=== PATIENT | female | born 1980 | race Caucasian/White ===

== ENCOUNTER → 2021-08-03 09:07 | Outpatient (CLI) | payer BC, SELFPAY ==
--- NOTE | ~2021-08-03 | US_ITS ---
EXAMINATION: US thyroid EXAM DATE: 08/03/2021 09:35 INDICATION: Sick euthyroid syndrome . Hair loss. TECHNIQUE: Multiple grayscale and Doppler images of the thyroid were obtained (by a technologist who performed the scan) and subsequently reviewed. Individual nodules and recommendations may be reporte d in accordance with TI-RADS system as designated by the 2017 ACR White Paper TI-RADS committee. The re is no prior study for comparison. FINDINGS: The right thyroid lobe measures 4.8 x 1.6 x 1.8 cm, the left measuring 4.0 x 1.2 x 1.3 cm. Dimensions are within normal size limits. There is relatively homogeneous thyroid echogenicity, with severely h ypervascular parenchyma. There are several subcentimeter thyroid nodules. In the right thyroid lobe there is a category TR 4 nodule measuring 9 x 6 x 9 mm. Follow-up for this category nodule recommended only if nodule is 1 cm in size. 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 Return to clinical follow-up and if additional palpable abnormality develops a repeat ultrasound can be obtained. Reviewed, dictated and finalized at location [facility]. 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 Return to clinical follow-up and if additional palpable abnormality develop s a repeat ultrasound can be obtained.
== END ==
PROVIDERS: PCP Physician Assistant; Visit Provider Physician Assistant
DX: E07.81 Sick-euthyroid syndrome (principal)
CPT/HCPCS: 76536

== ENCOUNTER 2024-11-05 07:05 | Outpatient (CLI) | payer BC, SELFPAY ==
--- NOTE | ~2024-11-05 | XR_ITS ---
Lumbosacral Spine: AP, oblique, and lateral views Clinical History: Pain Findings: The normal lordotic curve is maintained. The vertebral bodies and posterior elements are i ntact. The intervertebral disc spaces are preserved. Mild facet arthropathy present at the lower lum bar spine. The sacroiliac joints are normally outlined. Impression: Mild facet arthropathy in the lower lumbar spine. Reviewed, dictated and finalized at location . Impression: Mild facet arthropathy in the lower lumbar spine.
--- NOTE | ~2024-11-05 | XR_ITS ---
Thoracic spine: Clinical Indication: Back pain AP and lateral views were performed. No fracture is seen. There is normal alignment of the vertebrae. The intervertebral disc spaces appe ar normal. Paravertebral soft tissues appear normal. Impression: No significant abnormalities noted. Reviewed, dictated and finalized at [facility]. Impression: No significant abnormalities noted.
== END 2024-11-05 07:06 | disposition home or self-care (01) ==
LOC: MICIMG 07:07
PROVIDERS: PCP Chiropractor; Visit Provider Chiropractor
DX: M47.816 Spondylosis without myelopathy or radiculopathy, lumbar region (principal); M54.6 Pain in thoracic spine
CPT/HCPCS: 72070; 72110